=== PATIENT | female | born 1960 | race Two or more races ===

== ENCOUNTER → 2018-09-30 | Emergency (ER) | payer OTHER ==
[~2018-09-30] VITALS: Ht 165.1 cm; Wt 96.6 kg
[~2018-09-30] MED LIST: CLONAZEPAM1 GM; LAMICTAL200 M1; PARLODEL2.5 MG; [UNRECOGNIZED DRUG - OTHER]
== END | disposition home or self-care (01) ==
LOC: ER 13:41
DX: J44.9 Chronic obstructive pulmonary disease, unspecified (principal); J22 Unspecified acute lower respiratory infection

== ENCOUNTER 2023-03-30 17:15 | Emergency (ER) | payer OTHER ==
[~2023-03-30] VITALS: Ht 157.5 cm; Wt 93.0 kg
[2023-03-30] MEDS ORDERED: CLONAZEPAM1 MG PO (18:09)
[2023-03-30] MEDS ORDERED: LAMICTAL200 M1 PO (18:09)
[2023-03-30] MEDS ORDERED: [UNRECOGNIZED DRUG - OTHER] (18:10)
[2023-03-30] MEDS ORDERED: BUPROPION XL150 MG PO (18:10)
[2023-03-30] MEDS ORDERED: VASOFLEX TABLE1 EACH PO (18:10)
[2023-03-30] MEDS ORDERED: CHILDREN'S ASPI81 MG PO (18:11)
[2023-03-30] MEDS ORDERED: CABERGOLINE0.5 MG PO (18:11)
== END 2023-03-31 10:40 | disposition home or self-care (01) ==
LOC: ER 17:15
PROVIDERS: Nurse Practitioner Family
DX: R06.02 Shortness of breath (principal); R09.02 Hypoxemia
CPT/HCPCS: 36415; 71046; 94640; 96365; 96372; 99283; J0456; J3301; J3490

== ENCOUNTER 2023-08-31 12:04 | Outpatient (CLI) | payer OTHER ==
[~2023-08-31 12:04] MED LIST changes: +BUPROPION XL150 MG PO; +CABERGOLINE0.5 MG PO; +CHILDREN'S ASPI81 MG PO; +CLONAZEPAM1 MG PO; +LAMICTAL200 M1 PO; +VASOFLEX TABLE1 EACH PO; +[UNRECOGNIZED DRUG - OTHER]
== END 2023-08-31 13:31 | disposition home or self-care (01) ==
LOC: MRI 12:04
PROVIDERS: ATTEND General Practice
DX: M54.50 Low back pain, unspecified (principal); M54.31 Sciatica, right side; M54.32 Sciatica, left side; M79.605 Pain in left leg; J44.9 Chronic obstructive pulmonary disease, unspecified
CPT/HCPCS: 72148